=== PATIENT | female | born 1995 | race Caucasian/White ===

== ENCOUNTER 2020-08-16 23:04 | Emergency (ER) | payer SELFPAY ==
[~2020-08-16] VITALS: Ht 160 cm; Wt 56.0 kg
--- NOTE | 2020-08-16 23:06 | PHYS DOC ---
General Adult HPI: HPI: ". I ve been sick.. the last couple days... to day nausea all day.. I did vomit twice.. and three watery diarrheas.. " Patient is a 24 year old female who presents with above hx and complaints of nausea, vomiting and diarrhea. Patient denies any intake of bad food. No recent travel outside [facility]. No specific ill contacts. No history immunosuppression. Patient has just finished a course of what is believed to be Augmentin for treatment of a urinary tract infection. Patient has not gotten a flu vaccination this year. Review of Systems: Review of Systems: Constitutional: Denies fever or chills Eyes: Denies change in visual acuity HENT: Denies nasal congestion or sore throat Respiratory: Denies cough or shortness of breath Cardiovascular: Denies chest pain or edema GI: Complains of abdominal pain, nausea, vomiting, and diarrhea : History of recent urinary tract infection which was treated with what was believed to be Augmentin Musculoskeletal: Denies back pain or joint pain Integument: Denies rash Neurologic: Denies headache, focal weakness or sensory changes Endocrine: Denies polyuria or polydipsia Lymphatic: Denies swollen glands Psychiatric: Denies depression or anxiety Family History: Family History: Noncontributory to presentation Current Medications: Current Meds: See nursing for home meds Allergies: Allergies: No known drug allergies Physical Exam: PE: Constitutional: Well developed, well nourished, moderate acute distress, non- toxic appearance. [] HENT: Normocephalic, atraumatic, bilateral external ears normal, oropharynx dry, no oral exudates, nose normal. [] Eyes: PERRLA, EOMI, conjunctiva normal, no discharge. [] Neck: Normal range of motion, no tenderness, supple, no stridor. [] Cardiovascular:Heart rate regular rhythm, no murmur [] Lungs & Thorax: Bilateral breath sounds equal apex auscultation [] Abdomen: Bowel sounds hyperactive, soft, mild generalized tenderness, no masses, no pulsatile masses. No true rebound sign. Skin: Warm, dry, no erythema, no rash. [] Back: No tenderness, no CVA tenderness. [] Extremities: No tenderness, no cyanosis, no clubbing, ROM intact, no edema. No psoas sign Neurologic: Alert and oriented X 3, normal motor function, normal sensory function, no focal deficits noted. [] Psychologic: Affect anxious, judgement normal, mood normal. [] EKG: EKG: [] Radiology/Procedures: Radiology/Procedures: [][address] [address] IMAGING REPORT Signed PATIENT: BULMARO DICK DACCOUNT: [id number] : 1995 LOCATION: ER AGE: 24 SEX: F EXAM STATUS: REG ER ORD. PHYSICIAN: SUNSHINE RYDER MD REASON: nv PROCEDURE: ACUTE ABDOMEN SERIES ACUTE ABDOMEN SERIES INDICATION: Reason: nv / Spl. Instructions: / History: . COMPARISON STUDY: None. FINDINGS: Lungs: Normal lung volume. No pulmonary mass or consolidation. The tracheobronchial tree and hilar structures are normal. Pleura: No pleural effusion or pneumothorax. Heart and Mediastinum: The cardiomediastinal silhouette is normal. The great vessels of the thorax are normal. Abdomen: Nonobstructive bowel gas pattern. No free air. IMPRESSION: 1. Nonobstructive bowel gas pattern. 2. No focal airspace disease. Electronically signed by: Luis Pelaez MD (08/17/2020 12:18 AM) [facility] DICTATED AND SIGNED BY: LUIS PELAEZ MD DATE: 08/17/20 0018 CC: SUNSHINE RYDER MD; PCP,NO ~MTH0 0 Heart Score: Risk Factors: Risk Factors: DM, Current or recent (<one month) smoker, HTN, HLP, family history of CAD, obesity. Risk Scores: Score 0 - 3: 2.5% MACE over next 6 weeks - Discharge Home Score 4 - 6: 20.3% MACE over next 6 weeks - Admit for Clinical Observation Score 7 - 10: 72.7% MACE over next 6 weeks - Early Invasive Strategies Course & Med Decision Making: Course & Med Decision Making Pertinent Labs and Imaging studies reviewed. (See chart for details) Patient stay on clear fluid diet only for the next 2 days. Push the clear fluids. Take Zofran 8 mg 4 times a day for active vomiting. May take Vicoprofen if discomfort does not responds [id number] Tylenol and ibuprofen. Follow-up primary care. Return if any concerns. Suspect patient does have a viral syndrome. Recommend patient self isolate for the next 10 days. Wear a mask covering your nose and mouth at all times when outside the home. Must avoid milk products or solids next 2 days. To allow bowel rest. Impression: 1. Viral Syndrome 2. Nausea, Vomiting and Diarrhea [] Dragon Disclaimer: Dragon Disclaimer: This electronic medical record was generated, in whole or in part, using a voice recognition dictation system. Departure Departure: Referrals: PCP,NO (PCP) Scripts Ondansetron Hcl (ZOFRAN) 4 Mg Tablet 8 MG PO QIDPRN PRN for nv, #30 TAB Prov: SUNSHINE RYDER MD 08/17/20 Hydrocodone/Ibuprofen (HYDROCODONE-IBUPROFEN 7.5-200 ) 1 Each Tablet 1 TAB PO PRN Q6HRS PRN for PAIN, #30 TAB 0 Refills Prov: SUNSHINE RYDER MD 08/17/20 Dragon Disclaimer This chart was dictated in whole or in part using Voice Recognition software in a busy, high-work load, and often noisy Emergency Department environment. It may contain unintended and wholly unrecognized errors or omissions. Dragon Disclaimer This chart was dictated in whole or in part using Voice Recognition software in a busy, high-work load, and often noisy Emergency Department environment. It may contain unintended and wholly unrecognized errors or omissions. SUNSHINE RYDER MD Aug 16, 2020 23:06
[2020-08-16] MEDS ORDERED: IV RINGERS SOLUTION,LACTATED 1,000 ML IV SCH (23:30)
[2020-08-16] MEDS ORDERED: ONDANSETRON PF 4 MG/2 ML VIAL. IVP ONE (23:30)
[2020-08-16] MEDS ORDERED: FAMOTIDINE 20 MG/2 ML VIAL IVP ONE (23:30)
--- NOTE | 2020-08-17 00:21 | RAD ---
ACUTE ABDOMEN SERIES INDICATION: Reason: nv / Spl. Instructions: / History: . COMPARISON STUDY: None. FINDINGS: Lungs: Normal lung volume. No pulmonary mass or consolidation. The tracheobronchial tree and hilar structures are normal. Pleura: No pleural effusion or pneumothorax. Heart and Mediastinum: The cardiomediastinal silhouette is normal. The great vessels of the thorax are normal. Abdomen: Nonobstructive bowel gas pattern. No free air. IMPRESSION: 1. Nonobstructive bowel gas pattern. 2. No focal airspace disease. Electronically signed by: Shiv Erickson MD (08/17/2020 12:18 AM) [facility]
[2020-08-17 00:26] VITALS: BP 108/47
[2020-08-17 00:28] LABS: BASO % 1 % (0-3); EOS # 0.1 x10^3/uL (0.0-0.7); EOS % 1 % (0-3); HEMATOCRIT 37.2 % (36.0-47.0); HEMOGLOBIN 12.3 g/dL (12.0-15.5); LYMPH % 35 % (24-48); MEAN CORPUSCULAR HEMOGLOBIN 34 pg (25-35); MEAN CORPUSCULAR HGB CONC 33 g/dL (31-37); MEAN CORPUSCULAR VOLUME 102 fL (79-100); MONO # 0.9 x10^3/uL (0.0-1.1); MONO % 10 % (0-9); NEUT # 4.6 x10^3uL (1.8-7.7); NEUT % 54 % (31-73); PLATELET COUNT 222 x10^3/uL (140-400); RED BLOOD COUNT 3.67 x10^6/uL (3.50-5.40); RED CELL DISTRIBUTION WIDTH 13.3 % (11.5-14.5); WHITE BLOOD COUNT 8.5 x10^3/uL (4.0-11.0)
[2020-08-17 00:57] LABS: CALCIUM 8.6 mg/dL (8.5-10.1); CREATININE 0.7 mg/dL (0.6-1.0); GFR 104.6
[2020-08-17 01:00] LABS: ALBUMIN 3.7 g/dL (3.4-5.0); DIRECT BILIRUBIN 0.1 mg/dL (0.0-0.2); TOTAL BILIRUBIN 0.1 mg/dL (0.2-1.0); TOTAL PROTEIN 7.1 g/dL (6.4-8.2)
[2020-08-17 01:10] LABS: BARBITURATES NEG (NEG); BENZODIAZEPINES NEG (NEG); CANNABINOIDS POS (NEG); COCAINE NEG (NEG); METHADONE NEG (NEG); OPIATES NEG (NEG); PHENCYCLIDINE NEG (NEG)
[2020-08-17 01:11] LABS: BACTERIA,URINE 0 /HPF (0-FEW); BILIRUBIN,URINE NEG (NEG); CLARITY,URINE CLEAR; COLOR,URINE YELLOW; GLUCOSE,URINE NEG (NEG); NITRITE,URINE NEG (NEG); RBC,URINE 0 /HPF (0-2); SQUAMOUS EPITHELIAL CELL,UR OCC /LPF; UROBILINOGEN,URINE 0.2 mg/dL (0.2 mg/dL); WBC,URINE OCC /HPF (0-4)
[2020-08-17 01:16] LABS: AMPHETAMINE/METHAMPHETAMINE NEG (NEG)
[2020-08-17] MEDS ORDERED: HYDR-1179 PO (02:07)
[2020-08-17] MEDS ORDERED: ONDA4TAB7 PO (02:07)
== END 2020-08-17 02:18 | disposition home or self-care (01) ==
LOC: ER 23:04
DX: B34.9 Viral infection, unspecified (principal); R11.2 Nausea with vomiting, unspecified; R19.7 Diarrhea, unspecified
CPT/HCPCS: 36415; 74022; 80048; 80076; 80307; 81001; 81025; 82150; 83690; 85025; 96361; 96374; 96375; 99284; J2405; J3490; J7120

== ENCOUNTER 2020-10-30 19:18 | Emergency (ER) | payer SELFPAY ==
[~2020-10-30] VITALS: Ht 160 cm; Wt 56.0 kg
[~2020-10-30 19:18] MED LIST: HYDR-1179 PO; ONDA4TAB7 PO
--- NOTE | 2020-10-30 19:23 | PHYS DOC ---
Past History Past Medical History: No Pertinent History, STD, UTI Past Surgical History: No Surgical History Alcohol Use: None General Adult HPI: HPI: ". My boyfriend told me he got herpes. " ... I called the health department they tell me come in to my doctor or the emergency department.." Patient is a 25 year old female who presents with above hx and complaints exposure to genital herpes. Patient has had previous chlamydia. Patient had 8 lifetime sex partners. Currently has been with 1 partner for the last couple years. Patient denies any history of immunosuppression. No history of travel. No history of other severe ill contacts. Patient complaining of sensation of discomfort in her vaginal area. No recent travel. Complains of vaginal discharge and discomfort. Review of Systems: Review of Systems: Constitutional: Denies fever or chills Eyes: Denies change in visual acuity HENT: Denies nasal congestion or sore throat Respiratory: Denies cough or shortness of breath Cardiovascular: Denies chest pain or edema GI: Denies abdominal pain, nausea, vomiting, bloody stools or diarrhea : Complains of vaginal discharge and discomfort Musculoskeletal: Denies back pain or joint pain Integument: Denies rash Neurologic: Denies headache, focal weakness or sensory changes Endocrine: Denies polyuria or polydipsia Lymphatic: Denies swollen glands Psychiatric: Denies depression or anxiety Family History: Family History: Noncontributory to presentation Current Medications: Current Meds: See nursing for home meds Allergies: Allergies: Allergies Coded Allergies Type Severity Reaction Last Updated Verified Penicillins Allergy Intermediate 08/16/20 Yes Sulfa (Sulfonamide Antibiotics) Allergy Intermediate 08/16/20 Yes Physical Exam: PE: Constitutional: Moderate acute distress, non-toxic appearance. [] HENT: Normocephalic, atraumatic, bilateral external ears normal, oropharynx moist, no oral exudates, nose normal. [] Eyes: PERRLA, EOMI, conjunctiva normal, no discharge. Glasses Neck: Normal range of motion, no tenderness, supple, no stridor. [] Cardiovascular:Heart rate regular rhythm, no murmur [] Lungs & Thorax: Bilateral breath sounds equal apex auscultation [] Abdomen: Bowel sounds normal, soft, no tenderness, no masses, no pulsatile masses. Vaginal discharge. Cervical motion tenderness. Skin: Warm, dry, no erythema, no rash. [] Back: No tenderness, no CVA tenderness. [] Extremities: No tenderness, no cyanosis, no clubbing, ROM intact, no edema. [] Neurologic: Alert and oriented X 3, normal motor function, normal sensory function, no focal deficits noted. [] Psychologic: Affect anxious, judgement normal, mood normal. [] EKG: EKG: [] Radiology/Procedures: Radiology/Procedures: [] Heart Score: Risk Factors: Risk Factors: DM, Current or recent (<one month) smoker, HTN, HLP, family history of CAD, obesity. Risk Scores: Score 0 - 3: 2.5% MACE over next 6 weeks - Discharge Home Score 4 - 6: 20.3% MACE over next 6 weeks - Admit for Clinical Observation Score 7 - 10: 72.7% MACE over next 6 weeks - Early Invasive Strategies Course & Med Decision Making: Course & Med Decision Making Pertinent Labs and Imaging studies reviewed. (See chart for details) Patient push fluids. Patient to follow-up with primary care. Patient to follow-up pending cultures. Patient practice safe sex. Patient to take doxycycline 100 mg twice a day for the next 14 days. Return if any concerns. Consider follow-up health department. Impression: 1. Cervicitis 2. History of herpes exposure [] Dragon Disclaimer: Dragon Disclaimer: This electronic medical record was generated, in whole or in part, using a voice recognition dictation system. Departure Departure: Referrals: PCP,NO (PCP) Scripts Doxycycline Hyclate (DOXYCYCLINE HYCLATE) 100 Mg Tablet. 100 MG PO BID for cervicitis for 14 Days, #28 TAB Prov: SUNSHINE RYDER MD 10/30/20 Elizabeth Disclaimer This chart was dictated in whole or in part using Voice Recognition software in a busy, high-work load, and often noisy Emergency Department environment. It may contain unintended and wholly unrecognized errors or omissions. Dragon Disclaimer This chart was dictated in whole or in part using Voice Recognition software in a busy, high-work load, and often noisy Emergency Department environment. It may contain unintended and wholly unrecognized errors or omissions. SUNSHINE RYDER MD Oct 30, 2020 19:23
[2020-10-30 20:25] LABS: AMPHETAMINE/METHAMPHETAMINE NEG (NEG); BARBITURATES NEG (NEG); BENZODIAZEPINES NEG (NEG); CANNABINOIDS POS (NEG); COCAINE NEG (NEG); METHADONE NEG (NEG); OPIATES NEG (NEG); PHENCYCLIDINE NEG (NEG)
[2020-10-30 20:29] LABS: BACTERIA,URINE 0 /HPF (0-FEW); BILIRUBIN,URINE NEG (NEG); CLARITY,URINE CLEAR; COLOR,URINE COLORLESS; GLUCOSE,URINE NEG (NEG); NITRITE,URINE NEG (NEG); RBC,URINE 0 /HPF (0-2); SQUAMOUS EPITHELIAL CELL,UR MOD /LPF; UROBILINOGEN,URINE 0.2 mg/dL (0.2 mg/dL); WBC,URINE 0 /HPF (0-4)
[2020-10-30 20:30] LABS: AMORPHOUS SEDIMENT,UR PRESENT /HPF
[2020-10-30] MEDS ORDERED: DOXY-96 PO (22:27)
[2020-10-30] MEDS ORDERED: AZITHROMYCIN 250 MG TABLET. PO ONE (22:30)
[2020-10-30] MEDS ORDERED: ONDANSETRON ODT 4 MG TAB.RAPDIS PO ONE (22:30)
[2020-10-30] MEDS ORDERED: metroNIDAZOLE 500 MG TABLET PO ONE (22:30)
[2020-10-30] MEDS ORDERED: IV NORMAL SALINE 50ML 50 ML ONE (23:00)
[2020-10-30] MEDS ORDERED: cefTRIAXone SODIUM 1 GM VIAL ONE (23:00)
[2020-10-31 00:14] VITALS: BP 139/82
[2020-11-01 20:10] LABS: CHLAMYDIA PROBE Negative (Negative)
== END 2020-10-31 00:14 | disposition home or self-care (01) ==
LOC: ER 19:18
DX: N72 Inflammatory disease of cervix uteri (principal); Z87.440 Personal history of urinary (tract) infections; Z88.0 Allergy status to penicillin; Z88.2 Allergy status to sulfonamides
CPT/HCPCS: 80307; 81001; 81025; 87252; 87491; 87591; 96365; 99284; J0696; Q0111; Q0162; 36415; 87480; 87510; 87660

== ENCOUNTER 2020-10-31 02:08 | Emergency (ER) | payer SELFPAY ==
[~2020-10-31] VITALS: Ht 160 cm; Wt 56.0 kg
[~2020-10-31 02:08] MED LIST changes: +DOXY-96 PO
--- NOTE | 2020-10-31 02:14 | PHYS DOC ---
Past History Past Medical History: No Pertinent History Past Surgical History: No Surgical History Alcohol Use: None General Adult HPI: HPI: "... After I got home.. I think the meds upset my stomach... I had some vomiting.. and diarrhea... My stomach hurt so bad from vomitilng now.." Patient is a 25 year old female who presents with above hx and complaints of abdomen pain, nausea, and diarrhea and vomiting. Patient seen earlier for cervicitis-(see earlier report). Patient did receive Rocephin, Flagyl, and Zi thromax. Patient has pending cultures for cervicitis. Did have findings on physical exam of cervicitis consisting of cervical motion tenderness and discharge. Boyfriend recently had developed a case of herpes and advised her tonight that she was probably exposed. Patient is very emotional about findings of cervicitis and possible exposure to herpes. Patient has history of previous STD consisting of chlamydia which was treated. Review of Systems: Review of Systems: Constitutional: Denies fever or chills Eyes: Denies change in visual acuity HENT: Denies nasal congestion or sore throat Respiratory: Denies cough or shortness of breath Cardiovascular: Denies chest pain or edema GI: Complains of generalized abdominal pain, nausea, vomiting, and some diarrhea. Diarrhea brown. No blood. : Denies dysuria. Complains of vaginal discharge Musculoskeletal: Denies back pain or joint pain Integument: Denies rash Neurologic: Denies headache, focal weakness or sensory changes Endocrine: Denies polyuria or polydipsia Lymphatic: Denies swollen glands Psychiatric: Denies depression or anxiety Family History: Family History: Noncontributory to presentation Current Medications: Current Meds: See nursing for home meds Allergies: Allergies: Allergies Coded Allergies Type Severity Reaction Last Updated Verified Penicillins Allergy Intermediate 08/16/20 Yes Sulfa (Sulfonamide Antibiotics) Allergy Intermediate 08/16/20 Yes Physical Exam: PE: Constitutional: Moderate acute distress, non-toxic appearance. [] HENT: Normocephalic, atraumatic, bilateral external ears normal, oropharynx moist, no oral exudates, nose normal. [] Eyes: PERRLA, EOMI, conjunctiva normal, no discharge. Masses Neck: Normal range of motion, no tenderness, supple, no stridor. [] Cardiovascular:Heart rate regular rhythm, no murmur [] Lungs & Thorax: Bilateral breath sounds equal apex on auscultation [] Abdomen: Bowel sounds hyperactive, soft, generalized tenderness, no masses, no pulsatile masses. [] Skin: Warm, dry, no erythema, no rash. [] Back: No tenderness, no CVA tenderness. [] Extremities: No tenderness, no cyanosis, no clubbing, ROM intact, no edema. No psoas sign. Neurologic: Alert and oriented X 3, normal motor function, normal sensory function, no focal deficits noted. [] Psychologic: Affect anxious, depressed,, judgement normal, . EKG: EKG: [] Radiology/Procedures: Radiology/Procedures: [] Heart Score: Risk Factors: Risk Factors: DM, Current or recent (<one month) smoker, HTN, HLP, family history of CAD, obesity. Risk Scores: Score 0 - 3: 2.5% MACE over next 6 weeks - Discharge Home Score 4 - 6: 20.3% MACE over next 6 weeks - Admit for Clinical Observation Score 7 - 10: 72.7% MACE over next 6 weeks - Early Invasive Strategies Course & Med Decision Making: Course & Med Decision Making Pertinent Labs and Imaging studies reviewed. (See chart for details) Patient given a rectal suppository for her nausea and vomiting. Pt. to remain on clear fluid diet x 24 hrs. Follow up with primary and cultures. Safe sex. Pt. requesting to eat. at 0500 hrs. Impression: 1. Acute cervicitis 2. Recent exposure to herpes 3. Nausea vomiting and diarrhea 4. Possible sensitivity to oral meds given for cervicitis. [] Dragon Disclaimer: Dragon Disclaimer: This electronic medical record was generated, in whole or in part, using a voice recognition dictation system. Departure Departure: Referrals: PCP,NO (PCP) [place] Disclaimer This chart was dictated in whole or in part using Voice Recognition software in a busy, high-work load, and often noisy Emergency Department environment. It may contain unintended and wholly unrecognized errors or omissions. SUNSHINE RYDER MD Oct 31, 2020 02:14
[2020-10-31] MEDS ORDERED: PROMETHAZINE 25 MG SUPP.RECT. PR ONE (02:30)
[2020-10-31 04:30] VITALS: BP 122/81
== END 2020-10-31 04:35 | disposition home or self-care (01) ==
LOC: ER 02:08
DX: N72 Inflammatory disease of cervix uteri (principal); Z20.89 Contact with and (suspected) exposure to other communicable diseases; R11.2 Nausea with vomiting, unspecified; R19.7 Diarrhea, unspecified; Z88.0 Allergy status to penicillin; Z88.2 Allergy status to sulfonamides
CPT/HCPCS: 99283

== ENCOUNTER 2021-02-06 07:38 | Emergency (ER) | payer SELFPAY ==
[~2021-02-06] VITALS: Ht 160 cm; Wt 49.0 kg
[2021-02-06] MEDS ORDERED: IV NORMAL SALINE 1,000ML 1,000 ML IV ONE (07:45)
[2021-02-06] MEDS ORDERED: ONDANSETRON PF 4 MG/2 ML VIAL. IVP ONE (07:45)
--- NOTE | 2021-02-06 07:55 | PHYS DOC ---
Past History Past Medical History: No Pertinent History, STD, UTI Past Surgical History: No Surgical History Alcohol Use: None General Adult EDM: Chief Complaint: NAUSEA/VOMITING/DIARRHEA HPI: HPI: 25-year-old female presents via EMS with nausea and vomiting. Patient tells me that she has had nausea and multiple episodes of vomiting per day for the last 3 days. She has generalized lower abdominal pain with the vomiting. When she woke up this morning she had an exacerbation of this cramping pain. It was severe and she had more vomiting. She decided she should come to the emergency room. Patient is able to keep down a small amount of water and a few crackers yesterday but threw up a couple hours later. She denies fever or chills. She has no diarrhea. She denies urinary symptoms. No history of pancreatitis. She does not drink alcohol daily. Review of Systems: Review of Systems: Constitutional: Denies fever or chills Eyes: Denies change in visual acuity HENT: Denies nasal congestion or sore throat Respiratory: Denies cough or shortness of breath Cardiovascular: Denies chest pain or edema GI: Generalized abdominal pain, nausea, vomiting. Denies bloody stools or diarrhea : Denies dysuria Musculoskeletal: Denies back pain or joint pain Integument: Denies rash Neurologic: Denies headache, focal weakness or sensory changes Endocrine: Denies polyuria or polydipsia Lymphatic: Denies swollen glands Psychiatric: Denies depression or anxiety Current Medications: Current Meds: Current Medications Medications (Trade) Dose Ordered Sig/[facility] Start Time Stop Time Status Last Admin Dose Admin Ondansetron HCl (Zofran) 8 mg 1X ONCE 02/06/21 07:45 02/06/21 07:46 UNV Sodium Chloride 1,000 ml @ 1,000 mls/hr 1X ONCE 02/06/21 07:45 02/06/21 08:44 UNV Allergies: Allergies: Allergies Coded Allergies Type Severity Reaction Last Updated Verified Penicillins Allergy Intermediate 08/16/20 Yes Sulfa (Sulfonamide Antibiotics) Allergy Intermediate 08/16/20 Yes Physical Exam: PE: Constitutional: Well developed, well nourished, mild acute distress, non-toxic appearance. [] HENT: Normocephalic, atraumatic, bilateral external ears normal, oropharynx moist, no oral exudates, nose normal. [] Eyes: PERRLA, EOMI, conjunctiva normal, no discharge. [] Neck: Normal range of motion, no tenderness, supple, no stridor. [] Cardiovascular: Heart rate regular rhythm, no murmur [] Lungs & Thorax: Bilateral breath sounds clear to auscultation [] Abdomen: Bowel sounds normal, soft, mild generalized tenderness, no masses, no pulsatile masses. [] Skin: Warm, dry, no erythema, no rash. [] Back: No tenderness, no CVA tenderness. [] Extremities: No tenderness, no cyanosis, no clubbing, ROM intact, no edema. [] Neurologic: Alert and oriented X 3, normal motor function, normal sensory function, no focal deficits noted. [] Psychologic: Affect normal, judgement normal, mood normal. [] EKG: EKG: [] Radiology/Procedures: Radiology/Procedures: [] Impressions: EXAM: Abdomen and pelvis CT with intravenous contrast. HISTORY: Pain. TECHNIQUE: Computed tomographic images of the abdomen and pelvis were obtained following the administration of intravenous contrast. Multiplanar reformatting was performed. *One or more of the following individualized dose reduction techniques were utilized for this examination: 1. Automated exposure control. 2. Adjustment of the mA and/or kV according to patient size. 3. Use of iterative reconstruction technique. COMPARISON: None. FINDINGS: Evaluation of the lower thorax is unremarkable. No hepatic lesion is seen. The gallbladder, pancreas, spleen, adrenal glands and kidneys are unremarkable. There is no appendicitis. There is no bowel obstruction. There is no abnormal bowel wall thickening. The bladder is unremarkable. The uterus is unremarkable. There is a 1.6 cm dominant right ovarian follicle. There is a fluid-filled tubular structure within the right adnexa which is likely due to a small bowel loop rather than hydrosalpinx. There is a small amount of pelvic free fluid. This can be physiologic in a premenopausal female. The aorta is normal in caliber. There is no lymphadenopathy. There is no suspicious osseous lesion. IMPRESSION: 1. 1.6 cm physiologic dominant right ovarian follicle and small amount of physiologic pelvic free fluid. 2. Otherwise, no acute abdominal or pelvic finding. Evaluation is limited due to motion. Electronically signed by: Micheline Killian MD (02/06/2021 9:39 AM) [id number] DICTATED AND SIGNED BY: MICHELINE KILLIAN MD DATE: 02/06/21 0937 CC: ICRO FUCHS DO; PCP,NO ~MTH0 0 Heart Score: C/O Chest Pain: N/A Risk Factors: Risk Factors: DM, Current or recent (<one month) smoker, HTN, HLP, family history of CAD, obesity. Risk Scores: Score 0 - 3: 2.5% MACE over next 6 weeks - Discharge Home Score 4 - 6: 20.3% MACE over next 6 weeks - Admit for Clinical Observation Score 7 - 10: 72.7% MACE over next 6 weeks - Early Invasive Strategies Course & Med Decision Making: Course & Med Decision Making Pertinent Labs and Imaging studies reviewed. (See chart for details) The patient was vomiting on arrival. She is given IV Zofran, Benadryl, saline. Her labs are unremarkable. Her urinalysis is negative for infection. Lactic acid was 3.2. I believe this is likely due to the acute vomiting. We have given her a liter of fluid. CT of the abdomen pelvis is negative for acute findings. Patient was further given Reglan for her nausea. She was given a dose of morphine for her pain. After her medical work-up, the patient informed us that she is suicidal and the struggle with suicidal thoughts for quite some time. Her last attempt was 1 year ago. She took a bunch of pills at that time. She denies taking any pills recently. Rest of the patient's work-up is unremarkable. The behavioral professional has spoken with the patient and the patient is willing to go to a voluntary program. She believes this is reasonable for the patient. Her suicidal ideations are longstanding and have not progressed. She has no specific plan. [] Elizabeth Disclaimer: Elizabeth Disclaimer: This electronic medical record was generated, in whole or in part, using a voice recognition dictation system. Departure Departure: Impression: Primary Impression: Vomiting Additional Impressions: Marijuana use Passive suicidal ideations Disposition: 01 HOME / SELF CARE / HOMELESS Condition: STABLE Referrals: PCP,NO (PCP) Patient Instructions: Marijuana Abuse-Brief, Nausea and Vomiting, Oxcb-hs-Udze, Suicidal Feelings, How to Help Yourself Scripts Ondansetron (ONDANSETRON ODT) 4 Mg Tab.rapdis 1 TAB PO PRN Q6-8HRS PRN for VOMITING, #16 TAB Prov: CIRO FUCHS DO 02/06/21 CIRO FUCHS DO February 06, 2021 07:55
[2021-02-06] MEDS ORDERED: diphenhydrAMINE 50 MG/ML VIAL IVP ONE (08:00)
[2021-02-06] MEDS ORDERED: MORPHINE SULFATE 2 MG/ML DISP.SYRIN. IV ONE (08:00)
[2021-02-06 08:10] LABS: BASO % 0 % (0-3); EOS % 1 % (0-3); HEMATOCRIT 40.5 % (36.0-47.0); HEMOGLOBIN 13.7 g/dL (12.0-15.5); LYMPH # 2.8 x10^3/uL (1.0-4.8); LYMPH % 42 % (24-48); MEAN CORPUSCULAR HEMOGLOBIN 35 pg (25-35); MEAN CORPUSCULAR HGB CONC 34 g/dL (31-37); MEAN CORPUSCULAR VOLUME 103 fL (79-100); MONO # 0.4 x10^3/uL (0.0-1.1); MONO % 6 % (0-9); NEUT # 3.4 x10^3uL (1.8-7.7); NEUT % 51 % (31-73); PLATELET COUNT 235 x10^3/uL (140-400); RED BLOOD COUNT 3.94 x10^6/uL (3.50-5.40); RED CELL DISTRIBUTION WIDTH 13.7 % (11.5-14.5); WHITE BLOOD COUNT 6.7 x10^3/uL (4.0-11.0)
[2021-02-06 08:18] LABS: CALCIUM 9.1 mg/dL (8.5-10.1); CREATININE 0.8 mg/dL (0.6-1.0); GFR 88.9; POTASSIUM 3.9 mmol/L (3.5-5.1)
[2021-02-06 08:24] LABS: ALBUMIN 4.2 g/dL (3.4-5.0); ALBUMIN/GLOBULIN RATIO 1.2 (1.0-1.7); TOTAL BILIRUBIN 0.4 mg/dL (0.2-1.0); TOTAL PROTEIN 7.8 g/dL (6.4-8.2)
[2021-02-06] MEDS ORDERED: IOHEXOL 300 MG/ML 75 ML VIAL. IV ONE (09:15)
[2021-02-06] MEDS ORDERED: IV RINGERS SOLUTION,LACTATED 1,000 ML IV ONE (09:15)
[2021-02-06] MEDS ORDERED: METOCLOPRAMIDE HCL 10 MG/2 ML VIAL. IVP ONE (09:15)
[2021-02-06 09:23] LABS: BARBITURATES NEG (NEG); BENZODIAZEPINES NEG (NEG); CANNABINOIDS POS (NEG); COCAINE NEG (NEG); METHADONE NEG (NEG); OPIATES POS (NEG); PHENCYCLIDINE NEG (NEG)
[2021-02-06] MEDS ORDERED: PANTOPRAZOLE IV 40 MG VIAL. IVP ONE (09:30)
[2021-02-06 09:36] LABS: AMPHETAMINE/METHAMPHETAMINE NEG (NEG)
[2021-02-06 09:38] LABS: BILIRUBIN,URINE NEG (NEG); CLARITY,URINE HAZY; COLOR,URINE YELLOW; GLUCOSE,URINE NEG (NEG)
[2021-02-06 09:39] LABS: AMORPHOUS SEDIMENT,UR PRESENT /HPF; BACTERIA,URINE 0 /HPF (0-FEW); NITRITE,URINE NEG (NEG); RBC,URINE 0 /HPF (0-2); SQUAMOUS EPITHELIAL CELL,UR MOD /LPF; UROBILINOGEN,URINE 0.2 mg/dL (0.2 mg/dL); WBC,URINE OCC /HPF (0-4)
--- NOTE | 2021-02-06 09:42 | RAD ---
EXAM: Abdomen and pelvis CT with intravenous contrast. HISTORY: Pain. TECHNIQUE: Computed tomographic images of the abdomen and pelvis were obtained following the administ ration of intravenous contrast. Multiplanar reformatting was performed. *One or more of the following individualized dose reduction techniques were utilized for this examina tion: 1. Automated exposure control. 2. Adjustment of the mA and/or kV according to patient size. 3. Use of iterative reconstruction technique. COMPARISON: None. FINDINGS: Evaluation of the lower thorax is unremarkable. No hepatic lesion is seen. The gallbladder, pancreas, spleen, adrenal glands and kidneys are unremarkable. There is no appendicitis. There is no bowel obstruction. There is no abnormal bowel wall thickening. The bladder is unremarkable. The uter us is unremarkable. There is a 1.6 cm dominant right ovarian follicle. There is a fluid-filled tubula r structure within the right adnexa which is likely due to a small bowel loop rather than hydrosalpin x. There is a small amount of pelvic free fluid. This can be physiologic in a premenopausal female. T he aorta is normal in caliber. There is no lymphadenopathy. There is no suspicious osseous lesion. IMPRESSION: 1. 1.6 cm physiologic dominant right ovarian follicle and small amount of physiologic pelvic free flu id. 2. Otherwise, no acute abdominal or pelvic finding. Evaluation is limited due to motion. Electronically signed by: Micheline Killian MD (02/06/2021 9:39 AM) [id number]
[2021-02-06] MEDS ORDERED: HALOPERIDOL LACT 5 MG/ML VIAL. ONE (11:14)
[2021-02-06] MEDS ORDERED: HALOPERIDOL LACT 5 MG/ML VIAL. IVP ONE (11:15)
[2021-02-06 11:20] LABS: ACETAMIN < 2.0 mcg/mL (10-30); SALIC 3.2 mg/dL (2.8-20.0)
[2021-02-06] MEDS ORDERED: ONDA4TAB12 PO (13:42)
[2021-02-06 13:57] VITALS: BP 111/60
== END 2021-02-06 14:20 | disposition home or self-care (01) ==
LOC: ER 07:38
DX: R45.851 Suicidal ideations (principal); R11.2 Nausea with vomiting, unspecified; F12.10 Cannabis abuse, uncomplicated; Z88.0 Allergy status to penicillin; Z88.2 Allergy status to sulfonamides
CPT/HCPCS: 36415; 74177; 80053; 80307; 80329; 81001; 81025; 83605; 85025; 96361; 96374; 96375; 99285; C9113; J1200; J1630; J2270; J2405; J2765; J7030; J7120; Q9967; G0480

== ENCOUNTER 2021-02-24 11:39 | Emergency (ER) | payer SELFPAY ==
[~2021-02-24] VITALS: Ht 160 cm; Wt 48.1 kg
[~2021-02-24 11:39] MED LIST changes: +ONDA4TAB12 PO
[2021-02-24 11:55] VITALS: BP 130/81
[2021-02-24 12:43] LABS: BASO % 0 % (0-3); EOS % 0 % (0-3); HEMATOCRIT 42.3 % (36.0-47.0); HEMOGLOBIN 14.3 g/dL (12.0-15.5); LYMPH # 1.3 x10^3/uL (1.0-4.8); LYMPH % 18 % (24-48); MEAN CORPUSCULAR HEMOGLOBIN 34 pg (25-35); MEAN CORPUSCULAR HGB CONC 34 g/dL (31-37); MEAN CORPUSCULAR VOLUME 102 fL (79-100); MONO # 0.3 x10^3/uL (0.0-1.1); MONO % 5 % (0-9); NEUT # 5.6 x10^3uL (1.8-7.7); NEUT % 77 % (31-73); PLATELET COUNT 231 x10^3/uL (140-400); RED BLOOD COUNT 4.16 x10^6/uL (3.50-5.40); RED CELL DISTRIBUTION WIDTH 12.6 % (11.5-14.5); WHITE BLOOD COUNT 7.3 x10^3/uL (4.0-11.0)
[2021-02-24 12:54] LABS: CALCIUM 9.2 mg/dL (8.5-10.1); CREATININE 0.8 mg/dL (0.6-1.0); GFR 88.9; POTASSIUM 4.3 mmol/L (3.5-5.1)
[2021-02-24 12:58] LABS: BARBITURATES NEG (NEG); BENZODIAZEPINES NEG (NEG); CANNABINOIDS POS (NEG); COCAINE NEG (NEG); METHADONE NEG (NEG); OPIATES NEG (NEG); PHENCYCLIDINE NEG (NEG)
[2021-02-24 13:00] LABS: AMPHETAMINE/METHAMPHETAMINE NEG (NEG)
[2021-02-24 13:06] LABS: BILIRUBIN,URINE NEG (NEG); CLARITY,URINE CLEAR; COLOR,URINE YELLOW; GLUCOSE,URINE NEG (NEG); NITRITE,URINE NEG (NEG); UROBILINOGEN,URINE 0.2 mg/dL (0.2 mg/dL)
[2021-02-24 13:08] LABS: ALBUMIN 4.5 g/dL (3.4-5.0); ALBUMIN/GLOBULIN RATIO 1.2 (1.0-1.7); BACTERIA,URINE 0 /HPF (0-FEW); RBC,URINE 0 /HPF (0-2); TOTAL BILIRUBIN 0.2 mg/dL (0.2-1.0); TOTAL PROTEIN 8.3 g/dL (6.4-8.2); WBC,URINE 0 /HPF (0-4)
--- NOTE | 2021-02-24 13:49 | RAD ---
CT HEAD/BRAIN WO History: Reason: new onset seizure / Spl. Instructions: / History: Comparison: None. Technique: Noncontrast CT imaging was performed of the head. Exposure: One or more of the following individualized dose reduction techniques were utilized for thi s examination: 1. Automated exposure control 2. Adjustment of the mA and/or kV according to patient size 3. Use of iterative reconstruction technique. Findings: No intracranial hemorrhage. No mass effect. No hydrocephalus. Extra-axial spaces are unremarkable. Imaged orbits are unremarkable. Imaged paranasal sinuses and mastoid air cells are clear. No acute ca lvarial fracture. Impression: 1. No acute intracranial abnormality. Electronically signed by: Clay Oscar DO (02/24/2021 1:47 PM) [id number]
--- NOTE | 2021-02-24 14:02 | PHYS DOC ---
Past History Past Medical History: Anxiety, Depression Past Surgical History: Tonsillectomy Alcohol Use: Sober Adult General Chief Complaint Chief Complaint: SEIZURE HPI HPI Patient is a 25-year-old female who presents to the emergency room complaining of seizure-like activity. Patient states that she had an episode yesterday and then had a 4 episodes today. She states she remembers all but the last episode. She states that after the or over she feels normal. She does have a mild headache. She did withdrawal from opiates and benzodiazepines but this was 4 weeks ago. She did not have any seizures after this. She was on short acting benzos and opiates. She denies any kind of trauma. She feels back to normal. Review of Systems Review of Systems Complete ROS is negative unless otherwise documented in HPI Allergies Allergies Allergies Coded Allergies Type Severity Reaction Last Updated Verified Penicillins Allergy Intermediate 08/16/20 Yes Sulfa (Sulfonamide Antibiotics) Allergy Intermediate 08/16/20 Yes Physical Exam Physical Exam General: Awake, alert, NAD. Well Nourished, well hydrated. Cooperative HEENT: Atraumatic, EOMI, PERRL, airway patent, moist oral mucosa Neck: Supple, trachea midline Respiratory: CTA bilaterally, normal effort, no wheezing/crackles CV: RRR, no murmur, cap refill <2 GI: Soft, nondistended, nontender, no masses MSK: No obvious deformities Skin: Warm, dry, intact Neuro: A&O x3, speech NL, 5/5 strength in BUE/BLE distally and proximally, CN 2- 12 intact, cerebellar testing normal Psych: Normal affect, normal mood, not suicidal or homicidal Current Patient Data Vital Signs Vital Signs Date Time Temp Pulse Resp B/P (MAP) Pulse Ox O2 Delivery O2 Flow Rate FiO2 02/24/21 11:55 98.6 105 20 130/81 (97) 99 Room Air Lab Results Laboratory Tests Test 02/24/21 12:20 02/24/21 12:35 White Blood Count 7.3 x10^3/uL (4.0-11.0) Red Blood Count 4.16 x10^6/uL (3.50-5.40) Hemoglobin 14.3 g/dL (12.0-15.5) Hematocrit 42.3 % (36.0-47.0) Mean Corpuscular Volume 102 fL (79-100) H Mean Corpuscular Hemoglobin 34 pg (25-35) Mean Corpuscular Hemoglobin Concent 34 g/dL (31-37) Red Cell Distribution Width 12.6 % (11.5-14.5) Platelet Count 231 x10^3/uL (140-400) Neutrophils (%) (Auto) 77 % (31-73) H Lymphocytes (%) (Auto) 18 % (24-48) L Monocytes (%) (Auto) 5 % (0-9) Eosinophils (%) (Auto) 0 % (0-3) Basophils (%) (Auto) 0 % (0-3) Neutrophils # (Auto) 5.6 x10^3uL (1.8-7.7) Lymphocytes # (Auto) 1.3 x10^3/uL (1.0-4.8) Monocytes # (Auto) 0.3 x10^3/uL (0.0-1.1) Eosinophils # (Auto) 0.0 x10^3/uL (0.0-0.7) Basophils # (Auto) 0.0 x10^3/uL (0.0-0.2) Urine Collection Type Unknown Urine Color Yellow Urine Clarity Clear Urine pH 8.0 Urine Specific [place] 1.025 Urine Protein Neg (NEG-TRACE) Urine Glucose (UA) Neg mg/dL (NEG) Urine Ketones (Stick) Neg mg/dL (NEG) Urine Blood Neg (NEG) Urine Nitrite Neg (NEG) Urine Bilirubin Neg (NEG) Urine Urobilinogen Dipstick 0.2 mg/dL (0.2 mg/dL) Urine Leukocyte Esterase Neg (NEG) Urine RBC 0 /HPF (0-2) Urine WBC 0 /HPF (0-4) Urine Bacteria 0 /HPF (0-FEW) Sodium Level 140 mmol/L (136-145) Potassium Level 4.3 mmol/L (3.5-5.1) Chloride Level 102 mmol/L (98-107) Carbon Dioxide Level 26 mmol/L (21-32) Anion Gap 12 (6-14) Blood Urea Nitrogen 13 mg/dL (7-20) Creatinine 0.8 mg/dL (0.6-1.0) Estimated GFR (Cockcroft-Gault) 88.9 BUN/Creatinine Ratio 16 (6-20) Glucose Level 103 mg/dL (70-99) H Lactic Acid Level 1.7 mmol/L (0.4-2.0) Calcium Level 9.2 mg/dL (8.5-10.1) Total Bilirubin 0.2 mg/dL (0.2-1.0) Aspartate Amino Transferase (AST) 19 U/L (15-37) Alanine Aminotransferase (ALT) 26 U/L (14-59) Alkaline Phosphatase 65 U/L (46-116) Total Protein 8.3 g/dL (6.4-8.2) H Albumin 4.5 g/dL (3.4-5.0) Albumin/Globulin Ratio 1.2 (1.0-1.7) Urine Opiates Screen Neg (NEG) Urine Methadone Screen Neg (NEG) Urine Barbiturates Neg (NEG) Urine Phencyclidine Screen Neg (NEG) Urine Amphetamine/Methamphetamine Neg (NEG) Urine Benzodiazepines Screen Neg (NEG) Urine Cocaine Screen Neg (NEG) Urine Cannabinoids Screen Pos (NEG) Urine Ethyl Alcohol Neg (NEG) POC Urine HCG, Qualitative hcg negative (Negative) EKG EKG [] Radiology/Procedures Radiology/Procedures [] Heart Score C/O Chest Pain: N/A Risk Factors: Risk Factors: DM, Current or recent (<one month) smoker, HTN, HLP, family history of CAD, obesity. Risk Scores: Risk Factors: DM, Current or recent (<one month) smoker, HTN, HLP, family history of CAD, obesity. Course & Med Decision Making Course & Med Decision Making Pertinent Labs and Imaging studies reviewed. (See chart for details) Patient is a 25-year-old female who presents to the emergency room complaining of seizure like activity. Patient states that she does remember the episodes. It is possible that this may be related to pseudoseizures. Lab work was done and is unremarkable. CT head is normal. Patient had no seizure activity here in the emergency room. Patient has passed the typical time of withdrawal seizures. Will refer her to outpatient neurology. Patient's test results and vitals while in the ED were fully reviewed and discussed with the patient. Patient is stable and at this time does not need admission to the hospital. We have discussed strict return precautions and the importance of following up with their Primary Care Physician. Patient stated understanding and was given an opportunity to ask any questions. Patient is in agreement with plan. Dragon Disclaimer Dragon Disclaimer This electronic medical record was generated, in whole or in part, using a voice recognition dictation system. Departure Departure: Impression: Primary Impression: Seizure-like activity Disposition: 01 HOME / SELF CARE / HOMELESS Condition: STABLE Referrals: PCP[facility]EDEE (PCP) MARIE HOWARD MD Patient Instructions: Seizure, Adult RAY GARCIA MD Feb 24, 2021 14:02
== END 2021-02-24 14:09 | disposition home or self-care (01) ==
LOC: ER 11:39
DX: R56.9 Unspecified convulsions (principal); R51.9 Headache, unspecified; F41.9 Anxiety disorder, unspecified; F32.9 Major depressive disorder, single episode, unspecified; Z88.0 Allergy status to penicillin; Z88.2 Allergy status to sulfonamides
CPT/HCPCS: 36415; 70450; 80053; 80307; 81001; 81025; 83605; 85025; 99284